=== PATIENT | female | born 1990 | race Caucasian/White ===

== ENCOUNTER 2019-12-13 13:43 | Inpatient (IN) ==
[2019-12-13] MEDS: LACTATED RINGER'S 1,000 ML IV PRN ×2 (14:20→15:15)
[2019-12-13] MEDS ORDERED: OXYTOCIN 30 UNITS/500 ML BAG IV PRN (14:23)
[2019-12-13] MEDS ORDERED: fentaNYL citrate 100 MCG/2 ML VIAL ONE (14:30)
[2019-12-13] MEDS ORDERED: ePHEDrine sulfate 50 MG/ML AMP ONE (14:30)
[2019-12-13] MEDS ORDERED: BUPIVACAINE 0.25% 30 ML VIAL ONE (14:31)
[2019-12-13] MEDS ORDERED: fentaNYL 2MCG/ML ROPIV 1.25MG/ML 100 ML BAG EPI ONE (14:31)
--- NOTE | 2019-12-13 14:33 | Anesthesiology Consultation ---
Date of Service December 13, 2019 Assessment & Plan Chart Review Chart Review: Acceptable Risk for Labor Epidural ASA ASA2 Proposed Anesthesia Anesthesia Type: Labor Epidural Risk / Benefits Reviewed With: PT / POA / Parent / Guardian, Accepts Plan and Informed Consent Obtained History Height/Weight Height: 5 ft 2 in Weight: 75.75 kg Allergies Allergy/AdvReac Type Severity Reaction Status Date / Time fish derived Allergy Severe Difficulty Verified 12/13/19 14:25 Breathing nut - unspecified Allergy Severe Difficulty Verified 12/13/19 14:25 Breathing soy Allergy Severe Difficulty Verified 12/13/19 14:25 Breathing Medications Home Medications Medication Instructions Recorded Confirmed Last Taken [id number] fumarate-FA 1 tab PO DAILY 09/15/19 12/13/19 12/12/19 21:00 [] albuterol sulfate [ProAir HFA] 1 - 2 inh INHALATION Q4H PRN 09/15/19 12/13/19 Unknown omeprazole magnesium 20 mg 20 mg PO DAILY #30 tab 11/29/19 12/13/19 12/12/19 08:00 tablet,delayed release famotidine-Ca carb-mag hydrox 1 tab PO DAILY 12/05/19 12/13/19 12/12/19 21:00 [Pepcid Complete] Active Medications Generic Name Dose Route Start Last Admin Trade Name Freq PRN Reason Stop Dose Admin Lactated Ringer's 1,000 mls @ 125 mls/hr 12/13/19 14:23 12/13/19 15:23 Lr IV 12/15/19 14:22 125 mls/hr .Q8H PRN Infusion L&D Protocol Protocol Exercise / Class Metabolic Activity II 4-5 Yardwork/Stairs/Walk up hill Past Anesthesia History No Hx of Anesthesia Complications and No Family Hx of Anesthesia Complications History of PONV No Hx of PONV and No Hx of Motion Sickness Social History Smoking Status: Never smoker Hx Alcohol Use: No Hx Substance Use: No Review of Systems denies fever/cough/ colds/ chest pain/ SOB/ SOFYA Constitutional: no fever and no chills Respiratory: no cough and no dyspnea denies SOFYA Cardiovascular: no chest pain and no dyspnea on exertion Physical Exam Vital Signs Last Vital Signs Temp 36.6 C 12/13/19 13:51 Pulse 77 12/13/19 15:20 Resp 18 12/13/19 13:51 BP 127/59 L 12/13/19 15:20 Pulse Ox 96 12/13/19 15:17 ENMT Mouth: no TMJ abnormality and no dentition abnormality Thyromental Distance: > or= 3.5 Finger Breadths Mallampati Class: II Neck neck extension not limited Respiratory normal respiratory effort; no respiratory distress Auscultation: lungs clear to auscultation bilaterally Cardiovascular Rate/Rhythm: regular rate and regular rhythm Neurologic moves all extremities Psychiatric Orientation: alert and oriented x 3 Testing Laboratory Results 12/13/19 14:20
[2019-12-13 14:38] LABS: Basophils # (auto) 0.02 K/uL (0-0.2); Basophils % (auto) 0.1 %; Eosinophils # (auto) 0.03 K/uL (0-0.5); Eosinophils % (auto) 0.2 %; Hematocrit (blood only) 35.8 % (37-47); Hemoglobin 12.1 g/dL (12.0-16.0); Immature Granulocytes # (auto) 0.06 K/uL (0.00-0.02); Immature Granulocytes % (auto) 0.4 %; Lymphocytes % (auto) 12.9 %; Mean Corpuscular Volume 88.6 fL (80-100); Mean Platelet Volume 10.9 fL (7.4-10.4); Monocytes # (auto) 0.76 K/uL (0.11-0.59); Monocytes % (auto) 5.4 %; Neutrophils # (auto) 11.28 K/uL (1.4-6.5); Platelet Count 201 K/uL (130-400); RDW Coefficient of Variation 13.8 % (11.5-14.5); Red Blood Count 4.04 M/uL (4.2-5.4); White Blood Count 13.95 K/uL (4.8-10.8)
--- NOTE | 2019-12-13 14:41 | Labor Progress Brief Note ---
Date of Service December 13, 2019 Subjective Patient with painful contractions Q2min after having cervix stripped today by Dr. Gonzalez in the office. No LOF or VB, good FM. Assessment & Plan (1) Normal labor and delivery: Epidural to be given, then AROM. GBS neg. Rh neg. Physical Exam Physical Exam: Per RN 5cm (changed from office). Since patient is requesting epidural, I will wait to confirm exam when she is comfortable. FHT Cat 1 [place] Negron Torres Q3min. Results & Data Vital Signs (Past 12 Hours) Vital Signs Temp Pulse Resp BP 12/13/19 13:51 97.9 F 91 H 18 125/88 12/13/19 13:49 91 H 125/88 Coding Level of Care Code None Diagnoses Normal labor and delivery O80
[2019-12-13 14:45] LABS: Mean Corpuscular Hgb Conc 33.8 g/dL (32-36)
[2019-12-13] MEDS ORDERED: fentaNYL 2MCG/ML ROPIV 1.25MG/ML 100 ML BAG EPI PRN (15:24)
[2019-12-13] MEDS ORDERED: NALOXONE HCL 0.4 MG/1 ML VIAL/CARP IV PRN (15:24)
[2019-12-13] MEDS ORDERED: NALOXONE HCL 1 MG in SODIUM CHLORIDE 0.9% 1000ML 1,000 ML IV PRN (15:24)
[2019-12-13] MEDS ORDERED: NALBUPHINE HCL INJ 10 MG/ML AMP IV PRN (15:24)
[2019-12-13] MEDS ORDERED: ePHEDrine sulfate 50 MG/ML AMP IV PRN (15:24)
[2019-12-13] MEDS ORDERED: DiphenhydrAMINE HCL 50 MG/ML VIAL IV PRN (15:24)
[2019-12-13] MEDS ORDERED: ALBUTEROL HFA 8 GM INHALER INH PRN (18:30)
--- NOTE | 2019-12-13 18:30 | Delivery Summary ---
Vaginal Delivery Summary Date of Service December 13, 2019 Vaginal Delivery Summary DIAGNOSES: 1. Grider intrauterine at 39w2d gestation. 2. Spontaneous onset of labor. 3. Group B Streptococcus Neg. PROCEDURE: Spontaneous vaginal delivery without laceration. SURGEON: Alena Keller MD. BRAILLE PROOFREADER: None. ESTIMATED BLOOD LOSS: 300 mL. COMPLICATIONS: None. PLACENTA: Spontaneous and intact with a 3-vessel cord. DISPOSITION: Stable to labor and delivery. DESCRIPTION: The patient pushed well and brought the head to in OA position. The infant's head was allowed to deliver with contraction force and no further active pushing, with the perineum protected during this time. The shoulders delivered easily with a maternal pushing effort. There was no nuchal cord. The left shoulder was anterior. The shoulders and body delivered without any difficulty, and the infant was placed on the maternal abdomen. It was vigorous and moving all extremities, and making respiratory efforts. The cord was doubly clamped by the MD and then cut by the FOB. The placenta delivered spontaneously and was noted to be intact and with a 3VC. The cervix, vagina and perineum were examined and were found to be without defect requiring repair. The fundus was firm and lochia minimal immediately after delivery.
[2019-12-13] MEDS ORDERED: ACETAMINOPHEN 325 MG TAB PO PRN (18:34)
[2019-12-13] MEDS ORDERED: HYDROCORTISONE ACETATE 25 MG SUPP PR PRN (18:34)
[2019-12-13] MEDS ORDERED: SUPERCREAM 0.870% 15 GM JAR EXT PRN (18:34)
[2019-12-13] MEDS ORDERED: DIPHTHERIA/TETANUS/PERTUSSIS 0.5 ML SYR/VIAL IM ONE (18:34)
[2019-12-13] MEDS ORDERED: BENZOCAINE 20% AER SPR 82.5 GM CAN EXT PRN (18:34)
--- NOTE | 2019-12-13 18:47 | Anesthesia Procedure Note ---
Date of Service December 13, 2019 Anesthesia Post Epidural Note Vital Signs Vital Signs: Temp Pulse Resp BP Pulse Ox 36.5 C 80 16 129/69 96 12/13/19 15:43 12/13/19 18:29 12/13/19 15:43 12/13/19 18:29 12/13/19 18:22 Pain Intensity Abdomen: Pain Intensity: 3 Notes Mental Status: alert / awake / arousable and participated in evaluation Patient Amnestic to Procedure: Yes Nausea / Vomiting: adequately controlled Pain: adequately controlled Airway Patency, RR, SpO2: stable & adequate BP & HR: stable & adequate Hydration State: stable & adequate Anesthetic Complications: no major complications apparent and Pt Satisfied with anesthetic care
[2019-12-13] MEDS: IBUPROFEN 600 MG TAB PO PRN (20:47)
[2019-12-14] MEDS: IBUPROFEN 600 MG TAB PO PRN ×2 (05:36→10:40)
[2019-12-14] MEDS: OXYCODONE/ACETAMINOPHEN 5mg/325mg TAB PO PRN ×3 (05:39→16:37)
--- NOTE | 2019-12-14 05:55 | Obstetrical Progress Note ---
Date of Service <Killian Alfred MD - Last Filed: 12/14/19 06:15> December 14, 2019 Assessment & Plan <Killian Alfred MD - Last Filed: 12/14/19 06:15> (1) Normal labor and delivery: PPD#1 - continue routine care - encourage ambulation, and oral intake - after discharge will have follow-up in 6 weeks Subjective <Killian Alfred MD - Last Filed: 12/14/19 06:15> Ms. Corrigan is a 29 y/o female ; PPD #1 following spontaneous vaginal delivery; doing well this morning; having some abdominal cramping/pain with breast feeding; voiding well; tolerating meals overnight; and able to ambulate some; some persistent spotting with intermittent improvement this morning. Review of Systems Constitutional: denies fever; chills; sweats; headache Respiratory: denies shortness of breath, difficulty breathing Cardiac: denies chest pain; palpitations; chest pressure Breast: denies breast pain : denies dysuria Physical Exam <Killian Alfred MD - Last Filed: 12/14/19 06:15> General: alert; oriented; no acute distress Cardiac: RRR; no m/g/r Respiratory: CTAB a/p; no wheezes/rales/rhonchi; no increased work of breathing; symmetrical chest rise; no respiratory distress Abdomen: soft; NT/ND; bowel sounds positive Uterus: uterine fundus firm; palpable 3cm below umbilicus Lower extrem: no lower extremity edema or swelling; no deep calf pain; Baltazar's sign negative b/l Results & Data <Killian Alfred MD - Last Filed: 12/14/19 06:15> Vital Signs (Past 12 Hours) Vital Signs Temp Pulse Pulse Resp BP BP Pulse Ox 12/14/19 03:30 36.6 C 80 18 106/68 12/13/19 23:25 36.3 C L 63 18 107/58 L 12/13/19 22:15 36.4 C L 77 16 109/75 96 12/13/19 21:14 36.5 C 68 20 114/72 12/13/19 20:59 87 109/64 12/13/19 20:44 78 20 114/66 12/13/19 20:29 76 121/69 12/13/19 20:14 86 18 116/59 L 12/13/19 20:00 77 125/62 12/13/19 19:44 65 110/64 12/13/19 19:29 74 16 109/60 12/13/19 19:14 80 114/61 12/13/19 18:59 76 20 112/55 L 12/13/19 18:49 76 20 137/55 L 12/13/19 18:29 80 129/69 12/13/19 18:22 85 96 12/13/19 18:17 80 138/80 97 12/13/19 18:16 104 H 91 12/13/19 18:12 77 99 12/13/19 18:07 74 97 12/13/19 18:02 82 97 12/13/19 18:00 68 124/77 12/13/19 17:57 82 97 <Alena Keller MD - Last Filed: 12/14/19 07:11> Co-Signing Physician Notes I have reviewed the resident's note and examined the patient myself, and agree with the note above. Patient doing well and will be given breast pump Rx at her request. Resident Activity Tracking <Killian Alfred MD - Last Filed: 12/14/19 06:15> Resident Involvement: Resident Care Provided Care Provided: OB Delivery
[2019-12-14 06:20] LABS: Hematocrit (blood only) 32.8 % (37-47); Hemoglobin 10.8 g/dL (12.0-16.0); Mean Corpuscular Hemoglobin 29.7 pg (25-34); Mean Corpuscular Hgb Conc 32.9 g/dL (32-36); Mean Corpuscular Volume 90.1 fL (80-100); Mean Platelet Volume 10.9 fL (7.4-10.4); Platelet Count 180 K/uL (130-400); RDW Coefficient of Variation 13.9 % (11.5-14.5); RDW Standard Deviation 46.1 fL (36.4-46.3); Red Blood Count 3.64 M/uL (4.2-5.4); White Blood Count 11.87 K/uL (4.8-10.8)
[2019-12-14] MEDS: PRENATAL VITAMIN 1 TAB PO SCH (08:15)
[2019-12-14] MEDS: PANTOprazole 40 MG TAB PO SCH (08:15)
[2019-12-14] MEDS ORDERED: ACETAMINOPHEN 325 MG TAB PO PRN (20:21)
[2019-12-14] MEDS ORDERED: HYDROCORTISONE ACETATE 25 MG SUPP PR PRN (20:21)
[2019-12-14] MEDS ORDERED: OXYCODONE/ACETAMINOPHEN 5mg/325mg TAB PO PRN (20:21)
[2019-12-14] MEDS ORDERED: SUPERCREAM 0.870% 15 GM JAR EXT PRN (20:21)
[2019-12-14] MEDS: DOCUSATE SODIUM 100 MG CAP PO SCH (20:47)
[2019-12-15] MEDS: IBUPROFEN 600 MG TAB PO PRN ×2 (00:55→08:17)
--- NOTE | 2019-12-15 06:24 | Obstetrical Progress Note ---
Date of Service <Killian Alfred MD - Last Filed: 12/15/19 06:57> December 15, 2019 Assessment & Plan <Killian Alfred MD - Last Filed: 12/15/19 06:57> (1) Normal labor and delivery: PPD#2 - continue routine care - encourage ambulation, and oral intake - after discharge will have follow-up in 6 weeks Subjective <Killian Alfred MD - Last Filed: 12/15/19 06:57> Ms. Corrigan is a 29 y/o female ; PPD #2 following spontaneous vaginal delivery; doing well this morning; having minimal abdominal cramping/pain with breast feeding; voiding well; tolerating meals overnight; and able to ambulate some; some persistent spotting with intermittent improvement this morning. Review of Systems Constitutional: denies fever; chills; sweats; headache Respiratory: denies shortness of breath, difficulty breathing Cardiac: denies chest pain; palpitations; chest pressure Breast: denies breast pain : denies dysuria Physical Exam <Killian Alfred MD - Last Filed: 12/15/19 06:57> General: alert; oriented; no acute distress Cardiac: RRR; no m/g/r Respiratory: CTAB a/p; no wheezes/rales/rhonchi; no increased work of breathing; symmetrical chest rise; no respiratory distress Abdomen: soft; NT/ND; bowel sounds positive Uterus: uterine fundus firm; palpable 3cm below umbilicus Lower extrem: no lower extremity edema or swelling; no deep calf pain; Baltazar's sign negative b/l Results & Data <Killian Alfred MD - Last Filed: 12/15/19 06:57> Vital Signs (Past 12 Hours) Vital Signs Temp Pulse Resp BP 12/15/19 00:55 36.4 C L 89 18 109/69 Laboratory Results 12/14/19 Range/Units 10:54 Blood Type AB Negative Antibody Screen NEGATIVE Screen Negative (Negative) Medications Administered Current Inpatient Medications Acetaminophen (Tylenol) 650 mg PO Q6H PRN PRN Reason: Pain/HARDY/Fever Stop: 01/13/20 20:20 Last Admin: 12/15/19 00:53 Dose: 650 mg Documented by: Albuterol (Ventolin Hfa) 1 - 2 puffs INH Q4H PRN PRN Reason: SOB/WHEEZING Stop: 01/12/20 18:29 Benzocaine (Dermoplast Pain Relieving [place]) 1 appln EXT PRN PRN PRN Reason: Perineal Discomfort Stop: 01/12/20 18:33 Bisacodyl (Dulcolax) 5 mg PO 1999 [facility] Stop: 12/15/19 20:01 Cocaine HCl (Supercream 0.870%) 1 gm EXT BID PRN PRN Reason: Hemorrhoidal Inflammation Stop: 12/28/19 20:20 Docusate Sodium (Colace) 100 mg PO DAILY@08,21 [facility] Stop: 01/13/20 20:59 Last Admin: 12/14/19 20:47 Dose: 100 mg Documented by: Hydrocortisone (Anusol Hc) 25 mg LA BID PRN PRN Reason: Hemorrhoidal Inflammation Stop: 01/13/20 20:20 Lactated Ringer's (Lr) 1,000 mls @ 125 mls/hr IV .Q8H PRN; Protocol PRN Reason: L&D Protocol Stop: 12/15/19 14:22 Last Infusion: 12/13/19 18:30 Dose: 0 mls/hr Documented by: Oxytocin (Pitocin) 30 units in 500 mls @ 333.333 mls/hr IV .Q1H30M PRN; Protocol PRN Reason: Bleeding Control Stop: 01/12/20 14:22 Last Titration: 12/13/19 20:04 Dose: Infused Documented by: Ibuprofen (Motrin) 600 mg PO Q4H PRN PRN Reason: Pain/HARDY/Cramping/Fever Stop: 01/12/20 18:33 Last Admin: 12/15/19 00:55 Dose: 600 mg Documented by: Miscellaneous (Order Awaiting Action) 1 ea N/A QS [facility] Stop: 01/13/20 00:00 Oxycodone/Acetaminophen (Percocet 5mg/325mg) 1 tab PO Q4H PRN PRN Reason: Pain not relieved by... Stop: 12/27/19 18:33 Last Admin: 12/14/19 16:37 Dose: 1 tab Documented by: Pantoprazole Sodium (Protonix) 40 mg PO DAILY [facility] Stop: 01/13/20 08:59 Last Admin: 12/14/19 08:15 Dose: 40 mg Documented by: Prenat Multivit/Costume Shop Manager/Iron/Folic Ac ( Vitamin) 1 tab PO QAM MONI Stop: 01/13/20 08:59 Last Admin: 12/14/19 08:15 Dose: 1 tab Documented by: <Hetal Denney MD, FACOG - Last Filed: 12/15/19 07:58> Co-Signing Physician Notes Resident Physician Supervision Note: I interviewed and examined the patient. Discussed with Dr. Alfred and agree with findings and plan as documented in the note. Any exceptions or clarifications are listed here: [None] Documented By: Hetal Denney MD, FACOG Resident Activity Tracking <Killian Alfred MD - Last Filed: 12/15/19 06:57> Resident Involvement: Resident Care Provided Care Provided: OB Delivery
[2019-12-15] MEDS: PANTOprazole 40 MG TAB PO SCH (08:17)
[2019-12-15] MEDS: PRENATAL VITAMIN 1 TAB PO SCH (08:17)
[2019-12-15] MEDS: DOCUSATE SODIUM 100 MG CAP PO SCH (08:18)
[2019-12-15] MEDS ORDERED: bisacodyL 5 MG TABEC PO SCH (20:00)
== END 2019-12-15 10:25 | disposition home or self-care (01) | DRG 807 ==
LOC: OPB 13:43 → 4S1 13:46 → 4S2 21:38

== ENCOUNTER 2021-07-09 03:15 | Inpatient (IN) ==
[2021-07-09] MEDS ORDERED: OXYTOCIN 30 UNITS/500 ML BAG IV PRN ×2 (03:38→09:06)
[2021-07-09] MEDS ORDERED: PENICILLIN G POTASSIUM 3 MU in DEXTROSE 5% 100 ML IV PRN (03:38)
[2021-07-09] MEDS ORDERED: PENICILLIN G POTASSIUM 6 MU in DEXTROSE 5% 250 ML IV STA (03:38)
--- NOTE | 2021-07-09 03:50 | Anesthesiology Consultation ---
Date of Service July 09, 2021 Assessment & Plan (1) Encounter for pre-operative examination: Chart Review Chart Review: Patient NOT seen in Pre Admission Testing and Acceptable Risk for Labor Epidural Consults Requested none ASA ASA2E Proposed Anesthesia Anesthesia Type: Labor Epidural Risk / Benefits Reviewed With: PT / POA / Parent / Guardian, Accepts Plan and Informed Consent Obtained History Height/Weight Height: 5 ft 2 in Weight: 81.647 kg Allergies Allergy/AdvReac Type Severity Reaction Status Date / Time No Known Allergies Allergy Verified 07/09/21 04:08 Medications Home Medications Medication Instructions Recorded Confirmed Last Taken vit no.133-ferrous 1 tab PO DAILY 09/15/19 07/02/21 12/12/19 21:00 fumarate 28 mg-folic acid 800 mcg tablet () albuterol sulfate 90 mcg/actuation 1 - 2 inh INHALATION Q4H PRN #18 g 02/13/21 07/02/21 Unknown aerosol inhaler (ProAir HFA) ferrous sulfate PO 05/22/21 07/02/21 Unknown Active Medications Generic Name Dose Route Start Last Admin Trade Name Freq PRN Reason Stop Dose Admin Lactated Ringer's 1,000 mls @ 125 mls/hr 07/09/21 03:38 07/09/21 03:59 Lr IV 07/11/21 03:37 999 mls/hr .Q8H PRN Administration L&D Protocol Protocol NPO Date Last Intake of Fluids: 07/09/21 Time Last Intake of Fluids: 04:54 Date Last Intake of Solids: 07/09/21 Time Last Intake of Solids: 04:54 Past Medical History Medical History Allergic rhinitis Depression with anxiety History of asthma in childhood History of chicken pox Painful intercourse Palpitations Scoliosis Exercise / Class Metabolic Activity II 4-5 Yardwork/Stairs/Walk up hill Past Family History Family History Father Cleft lip Coronary heart disease Diabetes Hypercholesterolemia Hypertension Allergic rhinitis Uncle Factor V Leiden mutation paternal Mother Hyperlipidemia Egg allergy Allergic rhinitis Sister Ovarian cyst Other Multiple gestation Denies family history of Ovarian cancer Prostate cancer Myocardial infarction Breast cancer Colorectal cancer Past Surgical History Surgical History History of cryosurgery History of episiotomy History of gynecologic surgery perineal laceration repair- resection of granulation tissue, cauterization History of wisdom tooth extraction Past Anesthesia History No Hx of Anesthesia Complications History of PONV No Hx of PONV Social History Smoking Status: Never smoker Hx Alcohol Use: No Hx Substance Use: No Review of Systems Patient denies history of abnormal bleeding or bleeding disorder. Patient denies active use of anticoagulants other than low dose aspirin. Patient denies numbness, tingling or weakness in lower extremities. Negative for chest pain or shortness of breath. Physical Exam Vital Signs Last Vital Signs Temp 36.8 C 07/09/21 03:57 Pulse 97 H 07/09/21 04:50 Resp 16 07/09/21 03:57 BP 99/53 L 07/09/21 04:50 Pulse Ox 99 07/09/21 04:50 Constitutional not obese (gravid) ENMT Mouth: no TMJ abnormality and oral opening not small Thyromental Distance: > or= 3.5 Finger Breadths Mallampati Class: II Neck normal visual inspection; neck extension not limited Respiratory normal respiratory effort Cardiovascular Rate/Rhythm: regular rate and regular rhythm Neurologic moves all extremities Psychiatric Orientation: alert and oriented x 3 Testing Laboratory Results 07/09/21 03:48
[2021-07-09 03:57] LABS: Hematocrit (blood only) 37.7 % (37-47); Hemoglobin 12.6 g/dL (12.0-16.0); Mean Corpuscular Hemoglobin 29.9 pg (25-34); Mean Corpuscular Volume 89.5 fL (80-100); Mean Platelet Volume 11.4 fL (7.4-10.4); Platelet Count 161 K/uL (130-400); RDW Coefficient of Variation 13.7 % (11.5-14.5); Red Blood Count 4.21 M/uL (4.2-5.4)
[2021-07-09] MEDS: LACTATED RINGER'S 1,000 ML IV PRN ×2 (03:59→06:59)
[2021-07-09] MEDS ORDERED: SODIUM CHLORIDE 0.9% INJ 10 ML VIAL ONE (04:01)
[2021-07-09] MEDS ORDERED: fentaNYL citrate 100 MCG/2 ML VIAL ONE (04:01)
[2021-07-09] MEDS ORDERED: BUPIVACAINE 0.25% 30 ML VIAL ONE (04:01)
[2021-07-09] MEDS ORDERED: ePHEDrine sulfate 50 MG/ML AMP ONE (04:01)
[2021-07-09] MEDS ORDERED: fentaNYL 2MCG/ML ROPIVACAINE 1.25MG/ML 100 ML BAG EPI ONE (04:02)
--- NOTE | 2021-07-09 04:19 | History & Physical Report ---
Date of Service July 09, 2021 Assessment & Plan (1) Encounter for supervision of normal in multigravida, antepartum: Plan: Admit to L&D, EFM/toco. COVID swab per protocol. Labs. Would like epidural if possible. Admission and Anticipated Discharge Date Admission Date: July 09, 2021 History of Present Illness Chief Complaint: contractions Primary Care Provider: Paty Irvin MD 31yo @ 38 02/20, spontaneous labor. GBS+. Rh negative. +FM, no LOF, no VB. Ctx Q2 min. Allergies Allergy/AdvReac Type Severity Reaction Status Date / Time No Known Allergies Allergy Verified 07/09/21 04:08 Home Medications Medication Instructions Recorded Confirmed Type vit no.133-ferrous 1 tab PO DAILY 09/15/19 07/09/21 History fumarate 28 mg-folic acid 800 mcg tablet () albuterol sulfate 90 mcg/actuation 1 - 2 inh INHALATION Q4H PRN #18 g 02/13/21 07/02/21 Rx aerosol inhaler (ProAir HFA) ferrous sulfate 1 tab PO 3XWK 05/22/21 07/09/21 History Patient History Medical History (Updated 07/09/21 @ 03:49 by Izabella Dietz MD) Allergic rhinitis Depression with anxiety History of asthma in childhood History of chicken pox Painful intercourse Palpitations Scoliosis Surgical History History of cryosurgery History of episiotomy History of gynecologic surgery perineal laceration repair- resection of granulation tissue, cauterization History of wisdom tooth extraction Family History Father Cleft lip Coronary heart disease Diabetes Hypercholesterolemia Hypertension Allergic rhinitis Uncle Factor V Leiden mutation paternal Mother Hyperlipidemia Egg allergy Allergic rhinitis Sister Ovarian cyst Other Multiple gestation Denies family history of Ovarian cancer Prostate cancer Myocardial infarction Breast cancer Colorectal cancer Social History (Updated 12/01/20 @ 13:31 by Sydnee Shetty) Smoking Status: Never smoker Second Hand Exposure: No; Hx Alcohol Use: No Hx Substance Use: No Preferred Language: Nigerian Communication Ability: Effective Visual Impairment: No Limitations Hearing Ability: Normal Beliefs That Will Affect Care: None marital status: marital status details: Toni (31) [phone] Current Living Situation: Family Current Living Situation Comment: and 3 children current occupational status: employed current occupation: [employer] Feels Safe at Home: Yes Safety Concerns: Feels Safe At This Time Childhood Exposure to Second-Hand Smoke: No Dental Care, Regularly: No Physical Activity Frequency: 1-2 Times per Week Seatbelt Use: always Sunscreen Use: Yes Assistive Devices: Glasses Review of Systems All systems reviewed & are unremarkable except as noted in HPI & below Physical Exam Constitutional: WD/WN, vitals as above Respiratory: normal respiratory effort, lungs clear to auscultation no respiratory distress Cardiovascular: Rate/Rhythm: regular rate and regular rhythm Gastrointestinal (Abdomen): Inspection/Auscultation: abdomen normal to inspection Percussion/Palpation: abdomen soft; abdomen nontender Gravid. No s/s chorio or abruption. Skin: no rashes, warm and dry Psychiatric: A+Ox3, euthymic affect Results & Data ([facility]) Vital Signs (Past 12 Hours) Vital Signs Temp Pulse Resp BP 07/09/21 03:57 36.8 C 77 16 131/83 07/09/21 03:28 37.1 C 77 131/83 Monitoring External Monitor FHT Cat 1 [place] Q 2 SVE 7/100 per RN Coding Level of Care Code None Diagnoses Encounter for supervision of normal in multigravida, antepartum Z34.80
[2021-07-09 04:51] LABS: Mean Corpuscular Hgb Conc 33.4 g/dL (32-36)
[2021-07-09] MEDS ORDERED: ePHEDrine sulfate 50 MG/ML AMP IV PRN (04:59)
[2021-07-09] MEDS ORDERED: NALOXONE HCL 0.4 MG/1 ML VIAL/CARP IV PRN (04:59)
[2021-07-09] MEDS ORDERED: NALOXONE HCL 1 MG in SODIUM CHLORIDE 0.9% 1000ML 1,000 ML IV PRN (04:59)
[2021-07-09] MEDS ORDERED: NALBUPHINE HCL INJ 10 MG/ML AMP IV PRN (04:59)
[2021-07-09] MEDS ORDERED: ONDANSETRON INJ 2 MG/ML 2 ML VIAL IV PRN (04:59)
[2021-07-09] MEDS ORDERED: fentaNYL 2MCG/ML ROPIVACAINE 1.25MG/ML 100 ML BAG EPI PRN (04:59)
[2021-07-09] MEDS ORDERED: diphenhydrAMINE 50 MG/ML VIAL IV PRN (04:59)
[2021-07-09] MEDS ORDERED: CALCIUM CARBONATE 500 MG CHEWABLE TAB PO PRN (05:05)
[2021-07-09] MEDS ORDERED: CALCIUM CARBONATE 500 MG CHEWABLE TAB ONE (05:31)
--- NOTE | 2021-07-09 07:38 | Labor Progress Brief Note ---
Date of Service July 09, 2021 Subjective Comfortable with epidural. FHT Cat 1 [place] Q 2 SVE 9/100/+1 Now that she is 4h post-first dose of Penicillin for GBS, AROM forebag for clear fluid. Anticipate . Assessment & Plan Admission and Anticipated Discharge Date Admission Date: July 09, 2021 Results & Data ([facility]) Vital Signs (Past 12 Hours) Vital Signs Temp Pulse Resp BP Pulse Ox 07/09/21 07:30 94 H 97 07/09/21 07:25 92 H 98 07/09/21 07:22 86 131/67 07/09/21 07:21 77 94 07/09/21 07:20 77 95 07/09/21 07:15 89 95 07/09/21 07:10 101 H 96 07/09/21 07:07 88 135/66 07/09/21 07:05 92 H 96 07/09/21 07:00 94 H 96 07/09/21 06:55 85 94 07/09/21 06:53 76 117/65 07/09/21 06:51 87 94 07/09/21 06:50 77 97 07/09/21 06:45 80 95 07/09/21 06:43 85 94 07/09/21 06:40 88 97 07/09/21 06:35 88 125/68 96 07/09/21 06:32 84 122/77 07/09/21 06:31 78 113/60 07/09/21 06:30 81 98 07/09/21 06:25 109 H 98 07/09/21 06:24 111 H 111/56 L 07/09/21 06:23 105 H 115/56 L 07/09/21 06:20 101 H 98/57 L 97 07/09/21 06:18 103 H 104/57 L 07/09/21 06:16 100 H 108/59 L 07/09/21 06:15 91 H 98 07/09/21 06:14 97 H 104/57 L 07/09/21 06:12 107 H 102/58 L 07/09/21 06:10 101 H 106/57 L 98 07/09/21 06:08 73 106/51 L 07/09/21 06:06 94 H 100/56 L 07/09/21 06:05 93 H 97 07/09/21 06:04 93 H 102/55 L 07/09/21 06:02 94 H 110/55 L 07/09/21 06:00 36.8 C 97 H 16 110/59 L 98 07/09/21 05:58 96 H 102/57 L 07/09/21 05:56 98 H 114/55 L 07/09/21 05:55 109 H 98 07/09/21 05:54 91 H 121/58 L 07/09/21 05:52 104 H 106/62 07/09/21 05:50 98 H 104/57 L 97 07/09/21 05:48 104 H 104/54 L 07/09/21 05:46 127 H 108/56 L 07/09/21 05:45 90 97 07/09/21 05:44 101 H 99/54 L 07/09/21 05:42 94 H 102/57 L 07/09/21 05:40 94 H 109/58 L 97 07/09/21 05:38 97 H 101/59 L 07/09/21 05:36 95 H 101/59 L 07/09/21 05:35 102 H 97 07/09/21 05:34 101 H 106/71 07/09/21 05:32 105 H 109/63 07/09/21 05:30 97 H 102/55 L 98 07/09/21 05:28 95 H 100/57 L 07/09/21 05:26 94 H 99/56 L 07/09/21 05:25 95 H 98 07/09/21 05:24 102 H 103/57 L 07/09/21 05:22 99 H 100/57 L 07/09/21 05:20 89 100/57 L 98 07/09/21 05:18 93 H 100/55 L 07/09/21 05:16 86 104/59 L 07/09/21 05:15 98 H 98 07/09/21 05:14 101 H 102/59 L 07/09/21 05:12 96 H 107/58 L 07/09/21 05:10 98 H 105/57 L 98 07/09/21 05:08 95 H 100/52 L 07/09/21 05:07 94 H 125/63 07/09/21 05:05 91 H 98 07/09/21 05:04 94 H 104/51 L 07/09/21 05:02 77 105/58 L 07/09/21 05:00 91 H 102/57 L 98 07/09/21 04:58 96 H 99/58 L 07/09/21 04:56 84 94/55 L 07/09/21 04:55 96 H 99 07/09/21 04:54 95 H 94/52 L 07/09/21 04:52 104 H 94/50 L 07/09/21 04:50 97 H 99/53 L 99 07/09/21 04:48 98 H 100/53 L 07/09/21 04:46 96 H 116/53 L 07/09/21 04:45 111 H 99 07/09/21 04:44 99 H 98/54 L 07/09/21 04:42 93 H 105/59 L 07/09/21 04:40 93 H 96 07/09/21 04:39 88 99/55 L 07/09/21 04:35 92 H 98 07/09/21 04:30 94 H 98 07/09/21 04:25 111 H 98 07/09/21 03:57 36.8 C 77 16 131/83 07/09/21 03:28 37.1 C 77 131/83 Coding Level of Care Code None
--- NOTE | 2021-07-09 08:17 | Labor Progress Brief Note ---
Date of Service July 09, 2021 Subjective Comfortable with epidural. No urge yet to push. FHT Cat 1 [place] Q 2 SVE anterior lip/100/+1 Reposition and continue labor. Assessment & Plan Admission and Anticipated Discharge Date Admission Date: July 09, 2021 Results & Data ([facility]) Vital Signs (Past 12 Hours) Vital Signs Temp Pulse Resp BP Pulse Ox 07/09/21 08:10 96 H 98 07/09/21 08:07 90 120/69 07/09/21 08:05 86 98 07/09/21 08:00 83 97 07/09/21 07:55 92 H 97 07/09/21 07:52 89 127/73 07/09/21 07:50 97 H 96 07/09/21 07:45 86 96 07/09/21 07:40 89 97 07/09/21 07:37 84 118/66 07/09/21 07:35 95 H 96 07/09/21 07:30 94 H 97 07/09/21 07:25 92 H 98 07/09/21 07:22 86 131/67 07/09/21 07:21 77 94 07/09/21 07:20 77 95 07/09/21 07:15 89 95 07/09/21 07:10 101 H 96 07/09/21 07:07 88 135/66 07/09/21 07:05 36.8 C 92 H 18 96 07/09/21 07:00 94 H 96 07/09/21 06:55 85 94 07/09/21 06:53 76 117/65 07/09/21 06:51 87 94 07/09/21 06:50 77 97 07/09/21 06:45 80 95 07/09/21 06:43 85 94 07/09/21 06:40 88 97 07/09/21 06:35 88 125/68 96 07/09/21 06:32 84 122/77 07/09/21 06:31 78 113/60 07/09/21 06:30 81 98 07/09/21 06:25 109 H 98 07/09/21 06:24 111 H 111/56 L 07/09/21 06:23 105 H 115/56 L 07/09/21 06:20 101 H 98/57 L 97 07/09/21 06:18 103 H 104/57 L 07/09/21 06:16 100 H 108/59 L 07/09/21 06:15 91 H 98 07/09/21 06:14 97 H 104/57 L 07/09/21 06:12 107 H 102/58 L 07/09/21 06:10 101 H 106/57 L 98 07/09/21 06:08 73 106/51 L 07/09/21 06:06 94 H 100/56 L 07/09/21 06:05 93 H 97 07/09/21 06:04 93 H 102/55 L 07/09/21 06:02 94 H 110/55 L 07/09/21 06:00 36.8 C 97 H 16 110/59 L 98 07/09/21 05:58 96 H 102/57 L 07/09/21 05:56 98 H 114/55 L 07/09/21 05:55 109 H 98 07/09/21 05:54 91 H 121/58 L 07/09/21 05:52 104 H 106/62 07/09/21 05:50 98 H 104/57 L 97 07/09/21 05:48 104 H 104/54 L 07/09/21 05:46 127 H 108/56 L 07/09/21 05:45 90 97 07/09/21 05:44 101 H 99/54 L 07/09/21 05:42 94 H 102/57 L 07/09/21 05:40 94 H 109/58 L 97 07/09/21 05:38 97 H 101/59 L 07/09/21 05:36 95 H 101/59 L 07/09/21 05:35 102 H 97 07/09/21 05:34 101 H 106/71 07/09/21 05:32 105 H 109/63 07/09/21 05:30 97 H 102/55 L 98 07/09/21 05:28 95 H 100/57 L 07/09/21 05:26 94 H 99/56 L 07/09/21 05:25 95 H 98 07/09/21 05:24 102 H 103/57 L 07/09/21 05:22 99 H 100/57 L 07/09/21 05:20 89 100/57 L 98 07/09/21 05:18 93 H 100/55 L 07/09/21 05:16 86 104/59 L 07/09/21 05:15 98 H 98 07/09/21 05:14 101 H 102/59 L 07/09/21 05:12 96 H 107/58 L 07/09/21 05:10 98 H 105/57 L 98 07/09/21 05:08 95 H 100/52 L 07/09/21 05:07 94 H 125/63 07/09/21 05:05 91 H 98 07/09/21 05:04 94 H 104/51 L 07/09/21 05:02 77 105/58 L 07/09/21 05:00 91 H 102/57 L 98 07/09/21 04:58 96 H 99/58 L 07/09/21 04:56 84 94/55 L 07/09/21 04:55 96 H 99 07/09/21 04:54 95 H 94/52 L 07/09/21 04:52 104 H 94/50 L 07/09/21 04:50 97 H 99/53 L 99 07/09/21 04:48 98 H 100/53 L 07/09/21 04:46 96 H 116/53 L 07/09/21 04:45 111 H 99 07/09/21 04:44 99 H 98/54 L 07/09/21 04:42 93 H 105/59 L 07/09/21 04:40 93 H 96 07/09/21 04:39 88 99/55 L 07/09/21 04:35 92 H 98 07/09/21 04:30 94 H 98 07/09/21 04:25 111 H 98 07/09/21 03:57 36.8 C 77 16 131/83 07/09/21 03:28 37.1 C 77 131/83 Coding Level of Care Code None
--- NOTE | 2021-07-09 08:51 | Delivery Summary ---
Vaginal Delivery Summary Date of Service July 09, 2021 Vaginal Delivery Summary Spontaneous vaginal delivery. The patient had been admitted by the previous provider Dr. Estrada overnight she had received group B strep prophylaxis had requested epidural on my arrival the patient was fully dilated and pushed over a total of 2 contractions delivering a baby in occiput anterior position fluid was clear there was no nuchal cord gentle traction of the baby with no excessive force allowed delivery of a live vigorous female cord clamped and cut cord blood obtained placenta removed with gentle traction IV Pitocin started oxytocin improved uterine tone and bleeding was minimal there was no tearing sponge and instrument counts correct estimated blood loss 150 mL [facility] Vaginal Delivery Charge Vaginal Delivery Codes: 54959 global code for the antepartum, delivery, and post- Delivery Type Details: Procedure Anesthesia type: Epidural
[2021-07-09] MEDS ORDERED: bisacodyL 10 MG SUPP PR PRN (09:06)
[2021-07-09] MEDS ORDERED: ACETAMINOPHEN 325 MG TAB PO PRN (09:06)
[2021-07-09] MEDS ORDERED: oxyCODONE/ACETAMINOPHEN 5mg/325mg TAB PO PRN (09:06)
[2021-07-09] MEDS ORDERED: DIPHTHERIA/TETANUS/PERTUSSIS 0.5 ML SYR/VIAL IM ONE (09:06)
[2021-07-09] MEDS ORDERED: BENZOCAINE 20% AER SPR 82.5 GM CAN EXT PRN (09:06)
[2021-07-09] MEDS ORDERED: HYDROCORTISONE ACETATE 25 MG SUPP PR PRN (09:06)
[2021-07-09] MEDS ORDERED: SUPERCREAM 0.870% 15 GM JAR EXT PRN (09:06)
--- NOTE | 2021-07-09 09:41 | Anesthesia Procedure Note ---
Date of Service July 09, 2021 Anesthesia Post Epidural Note Vital Signs Vital Signs: Temp Pulse Resp BP Pulse Ox 98.2 F 73 18 109/62 98 07/09/21 07:05 07/09/21 09:36 07/09/21 07:05 07/09/21 09:36 07/09/21 08:35 Notes Mental Status: alert / awake / arousable and participated in evaluation Nausea / Vomiting: adequately controlled Pain: adequately controlled Airway Patency, RR, SpO2: stable & adequate BP & HR: stable & adequate Hydration State: stable & adequate Neuraxial Anesthesia: was administered and sensory block is resolving Anesthetic Complications: no major complications apparent and Pt Satisfied with anesthetic care Epidural: Removed without complications and With tip intact
[2021-07-09] MEDS: IBUPROFEN 600 MG TAB PO PRN ×2 (14:11→21:12)
[2021-07-09] MEDS: DOCUSATE SODIUM 100 MG CAP PO SCH (21:12)
[2021-07-10] MEDS: IBUPROFEN 600 MG TAB PO PRN ×2 (04:24→08:54)
--- NOTE | 2021-07-10 07:28 | Obstetrical Progress Note ---
Date of Service July 10, 2021 Assessment & Plan (1) Encounter for care and examination after delivery: Plan: 31yo PPD 1 s/p at 38weeks 5days -Continue routine care -Vitals reviewed- HDS, afebrile -GBS+ treated adequately before delivery -Encourage ambulation, regular diet -Pain control with ibuprofen, acetaminophen PRN -Encourage -Hgb 12.6 --> pending -discharge likely tomorrow Admission and Anticipated Discharge Date Admission Date: July 09, 2021 Supervising Physician Co-Signing Physician Notes Resident Physician Supervision Note: I was present with [Name of resident] during the history and exam. I discussed the case with the resident and agree with the findings and plan as documented in the note. Any exceptions or clarifications are listed here: [None] Documented By: Jenelle Melendrez MD, FACOG Subjective PPD 1 s/p (. Patient seen and examined at bedside. Reports no acute overnight events. Ambulating and voiding. Passing gas, not yet stool. Regular diet w/o N/V. Lochia small. Breast Feeding. Pain 12/24. Review of Systems Review of Systems: Denies fevers/chills. Denies dyspnea, cough. Denies chest pain. Mild breast pain, no discharge. Denies dysuria. Denies headache. Denies back pain. Physical Exam Physical Exam: General: Alert, oriented, no acute distress Cardiac: Regular rate and rhythm, normal S1, S2. No murmurs appreciated. Respiratory: Clear to auscultation b/l with good air flow entry, symmetric chest rise and fall. No wheezes or crackles. No increased work of breathing or accessory muscle use Abdomen: Soft, nontender, nondistended. Fundus firm and palpable at umbilicus. No guarding or rebound. Skin: No rashes or lesions Extremities: Warm, dry, well-perfused with capillary refill <2s b/l. No lower extremity edema, erythema or swelling. Negative Baltazar's sign b/l. Results & Data ([facility]) Vital Signs (Past 12 Hours) Vital Signs Temp Pulse Resp BP Pulse Ox 07/10/21 04:15 36.4 C L 80 18 106/70 97 07/10/21 00:45 36.6 C 88 16 106/67 97 07/09/21 19:45 36.6 C 76 20 123/78 98 Resident Activity Tracking Resident Involvement: Resident Care Provided Care Provided: OB Delivery
[2021-07-10] MEDS ORDERED: PRENATAL VITAMIN 1 TAB PO SCH ×2 (08:00→09:00)
[2021-07-10] MEDS: DOCUSATE SODIUM 100 MG CAP PO SCH (08:54)
[2021-07-10 13:06] VITALS: TEMP 97.5; O2SAT 98
[2021-07-10 13:07] VITALS: BP 112/64; PULSE 94
[2021-07-10] MEDS ORDERED: bisacodyL 5 MG TABEC PO SCH (20:00)
== END 2021-07-10 14:00 | disposition home or self-care (01) | DRG 807 ==
LOC: OPB 03:15 → 4S1 03:21 → 4S2 10:59
DX: Z67.91 Unspecified blood type, Rh negative; O99.824 Streptococcus B carrier state complicating childbirth; Z3A.38 38 weeks gestation of pregnancy; Z79.899 Other long term (current) drug therapy; Z37.0 Single live birth